=== PATIENT | female | born 1985 | race American Indian/Alaskan Native ===

== ENCOUNTER 2018-05-01 13:53 | Outpatient (CLI) | payer MEDICAID ==
[2018-05-01 14:54] LABS: Basophils # (Auto) 0.1 K/mm3 (0.0-0.1); Basophils % (Auto) 0.7 % (0.0-1.8); Eosinophils # (Auto) 0.1 K/mm3 (0.0-0.4); Eosinophils % (Auto) 0.6 % (0.0-4.3); Hematocrit 30.4 % (30.3-42.9); Hemoglobin 9.6 gm/dl (10.1-14.3); Lymphocytes # (Auto) 2.1 K/mm3 (1.2-5.4); Mean Corpuscular HGB Conc 32 % (30-34); Mean Corpuscular Hemoglobin 22 pg (28-32); Mean Corpuscular Volume 69 fl (79-97); Monocytes # (Auto) 0.8 K/mm3 (0.0-0.8); Monocytes % (Auto) 7.5 % (0.0-7.3); Platelet Count 168 K/mm3 (140-440); Red Cell Distribution Width 16.8 % (13.2-15.2)
[2018-05-01 15:24] LABS: Bacteria,Urine 1+ /HPF (Negative); Bilirubin,Urine NEG (Negative); Blood,Urine NEG (Negative); Color,Urine Yellow (Yellow); Mucus,Urine 1+ /HPF; RBC,Urine < 1.0 /HPF (0.0-6.0); Urobilinogen,Urine < 2.0 mg/dL (<2.0)
[2018-05-01 15:53] LABS: Alanine Aminotransferase 11 units/L (7-56); Uric Acid 3.8 mg/dL (3.5-7.6)
[2018-05-01 18:29] VITALS: BP 133/80
== END 2018-05-01 16:53 | disposition home or self-care (01) ==
LOC: TRG 13:53
PROVIDERS: ATTEND Obstetrics & Gynecology
DX: O47.1 False labor at or after 37 completed weeks of gestation (principal); Z3A.38 38 weeks gestation of pregnancy
CPT/HCPCS: 36415; 59025; 81001; 82565; 83615; 84450; 84460; 84550; 85025

== ENCOUNTER 2018-05-12 09:50 | Inpatient (IN) | payer MEDICAID ==
--- NOTE | 2018-05-08 13:33 | History and Physical Report ---
History of Present Illness Date of examination: 05/08/18 Date of admission: 05/12/18 planed date of admission Chief complaint: here for c/s and BTL History of present illness: Pt presents for repeat c/s x 1 with BTL. All risk/benefits/alternatives were d/ w pt and questions were addressed and answered. Consents signed and given pt pt to present on day of surgery. Current Allergies (reviewed today): No known allergies EDC Confirmation: 05/17/2018 Gestational Age: 18 5/7 weeks Past History : 3 Term Births: 3 Living Children: 3 Para: 2 Mult. Births: 0 Prev : 1 Aborta: 0 Elect. Ab: 0 Spont. 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 of genital herpes: no Partner hx. of genital herpes: no Rash, Viral, or Febrile illness since last LMP? no Varicella/Chicken Pox Status: Previous Disease Genetic History Congenital Heart Defect: Mom: no Dad: no Nelda Disease: Mom: no Dad: no Thalassemia Mom: no Dad: no Neural Tube Defect Mom: no Dad: no Down's Syndrome Mom: no Dad: no Sonny-Sachs Mom: no Dad: no Sickle Cell Disease/Trait Mom: no Dad: no Hemophilia Mom: no Dad: no Muscular Dystrophy Mom: no Dad: no Cystic Fibrosis Mom: no Dad: no [place] Chorea Mom: no Dad: no Mental Retardation Mom: no Dad: no Fragile X Mom: no Dad: no Other Genetic/Chromosomal Disorder Mom: no Dad: no Child w/other defect Mom: no Dad: no Enviromental Exposures Xray Exposure: no Medication, drug, or alcohol use since LMP: no Chemical/Other Exposure: no Exposure to Cat Liter: no Hx of Parvovirus (Fifth Disease): no Occupational Exposure to Children: none Active Medications (reviewed today): None Current Allergies (reviewed today): No known allergies Past History Past Medical History: no pertinent history 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: 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 PAP smear Social history: no significant social history, - Obstetrical History Expected Date of Delivery: 05/17/18 Actual Gestation: 38 Week(s) 5 Day(s) Medications and Allergies Allergies Allergy/AdvReac Type Severity Reaction Status Date / Time No Known Allergies Allergy Unverified 05/01/18 14:20 Home Medications Medication Instructions Recorded Confirmed Last Taken Type No Known Home Medications [No 05/01/18 05/01/18 Unknown History Reported Home Medications] Review of Systems All systems: negative - Physical Exam Cardiovascular: Normal S1, Normal S2 Lungs: Positive: Clear to auscultation, Normal air movement Abdomen: Positive: normal appearance, soft. Negative: distention, tenderness, guarding Genitourinary (Female): Positive: normal external genitalia, normal perenium Vagina: Positive: normal moisture Extremities: Positive: edema (2+ dependent b/l) - Obstetrical FHR: auscultation normal Results All other labs normal. Assessment and Plan - Patient Problems (1) 39 weeks gestation of Status: Acute (2) Previous section Status: Acute Plan to address problem: -admit for above procedure -consents signed and to be placed on the chart (3) Encounter for sterilization Status: Acute Plan to address problem: -consents singed -alternatives and risk discussed w/ pt and questions were addressed and answered.
[~2018-05-12 09:50] MED LIST: ANCEF/STERILE WATER 2 GM/20 ML 2 GM/20 ML SYRINGE IV NR; BICITRA PO NR; PEPCID IV NR; PITOCin/NS 20 UNIT/1000ML DRIP 20 UNITS/1,000 ML BAG IV SCH; REGLAN IV NR
[2018-05-12] MEDS ORDERED: LACTATED RINGERS 2,000 ML ONE (10:56)
[2018-05-12 11:09] LABS: Basophils % (Auto) 0.2 % (0.0-1.8); Eosinophils # (Auto) 0.1 K/mm3 (0.0-0.4); Eosinophils % (Auto) 1.1 % (0.0-4.3); Hematocrit 31.5 % (30.3-42.9); Hemoglobin 9.9 gm/dl (10.1-14.3); Lymphocytes # (Auto) 2.2 K/mm3 (1.2-5.4); Lymphocytes % (Auto) 25.6 % (13.4-35.0); Mean Corpuscular HGB Conc 31 % (30-34); Monocytes # (Auto) 0.6 K/mm3 (0.0-0.8); Platelet Count 195 K/mm3 (140-440); Red Blood Count 4.62 M/mm3 (3.65-5.03); Red Cell Distribution Width 17.7 % (13.2-15.2)
[2018-05-12 11:13] LABS: Mean Corpuscular Hemoglobin 21 pg (28-32); Mean Corpuscular Volume 68 fl (79-97)
[2018-05-12] MEDS: LACTATED RINGERS 1,000 ML IV SCH ×2 (11:45→12:14)
[2018-05-12] MEDS ORDERED: WATER FOR IRRIG STERILE IR ONE (12:55)
[2018-05-12] MEDS ORDERED: NACL 0.9% IR ONE (12:55)
[2018-05-12] MEDS ORDERED: NARCAN 0.4 MG/1 ML IV PRN ×2 (12:59→14:22)
[2018-05-12] MEDS ORDERED: PHENERGAN PO PRN (12:59)
[2018-05-12] MEDS ORDERED: BENADRYL IV PRN (12:59)
[2018-05-12] MEDS ORDERED: DILAUDID IV PRN (12:59)
[2018-05-12] MEDS ORDERED: PHENERGAN PR PRN (12:59)
[2018-05-12] MEDS ORDERED: ZOFRAN IV PRN (12:59)
--- NOTE | 2018-05-12 12:59 | Anesthesia Day of Surgery ---
Anesthesia Day of Surgery - Day of Surgery Patient Examined: Yes Patient H&P Reviewed: Yes Patient is NPO: Yes
--- NOTE | 2018-05-12 12:59 | Anesthesia Consultation ---
Anesthesia Consult and Med Hx Date of service: 05/12/18 - Airway Anesthetic Teeth Evaluation: Good ROM Head & Neck: Adequate Mental/Hyoid Distance: Adequate Mallampati Class: Class II Intubation Access Assessment: Probably Good - Pre-Operative Health Status ASA Pre-Surgery Classification: ASA3 Proposed Anesthetic Plan: Epidural, Spinal - Pulmonary Hx Asthma: No COPD: No Hx Pneumonia: No - Cardiovascular System Hx Hypertension: No - Central Nervous System Hx Seizures: No Hx Psychiatric Problems: No - Endocrine Hx Renal Disease: No Hx End Stage Renal Disease: No Hx Hypothyroidism: No Hx Hyperthyroidism: No - Hematic Hx Anemia: No Hx Sickle Cell Disease: No - Other Systems Hx Alcohol Use: No Hx Obesity: Yes (BMI 40.9)
[2018-05-12] MEDS ORDERED: SODIUM CHLORIDE FLUSH SYRINGE 10 ML IV NR (13:00)
[2018-05-12] MEDS ORDERED: TORADOL IV PRN (13:00)
[2018-05-12] MEDS ORDERED: NEO SYNEPHRINE/NS Syringe(OR USE) IV ONE (13:23)
[2018-05-12] MEDS ORDERED: NACL 0.9% 1000 ML 1,000 ML ONE (14:06)
[2018-05-12] MEDS ORDERED: MORPHINE ONE (14:08)
[2018-05-12] MEDS ORDERED: MOTRIN PO PRN (14:22)
[2018-05-12] MEDS ORDERED: TUCKS PAD TP PRN (14:22)
[2018-05-12] MEDS ORDERED: MYLICON PO PRN (14:22)
[2018-05-12] MEDS ORDERED: NORCO 5/325 PO PRN (14:22)
[2018-05-12] MEDS ORDERED: LANSINOH TP PRN (14:22)
--- NOTE | 2018-05-12 14:30 | Operative Report ---
Operative Report Operative Report: Date of procedure: 05/12/2018 Pre-operative diagnosis: 39 weeks gestation Previous section 1 Desires permanent sterilization Post-operative diagnosis: Same Procedure name(s): Repeat lower transverse section via Pfannenstiel skin incision Bilateral tubal ligation via modified Jonathan method Surgeon: Dr. Hurd Workers Compensation Adjuster: Ms. Reba Laughlin CST Anesthesia: Combined spinal epidural EBL: 600 mL Urine output: 50 mL of clear urine out at the end of the procedure Fluids: 1500 mL Findings: Liveborn female weight 7 lbs. 2 oz. Apgars of 8 and 9 at one and 5 minutes Nuchal cord 1 easily reduced Grossly normal fallopian tubes and ovaries bilaterally Indications: Mony presents for scheduled repeat section with bilateral tubal ligation. All risks benefits and alternatives were discussed with the patient. Patient was given ample time to ask questions all of which were addressed and answered. Consents were signed and placed on the chart. Procedure: Patient was taking to the operating room. Patient was then prepped and draped in sterile fashion after anesthesia was found to be adequate. A low transverse skin incision was made with the scalpel through previous incisional scar and carried down to the underlying layer of fascia with the Bovie. The fascia was then incised in the midline and this incision was extended bilaterally with the Bovie. The superior aspect of the fascia was grasped with Ying clamps tented upward and dissected off of the anterior rectus muscles with the scalpel. In similar fashion the inferior aspect of the fascia was grasped with Ying clamps tented upward and dissected off of the anterior rectus muscles. The rectus muscles were then bluntly divided in the midline. The peritoneum was identified and entered into sharply. The Zhen retractor was placed A lower transverse uterine incision was made with the scalpel and extended bilaterally with the bandage scissors. Artificial rupture of membranes was performed yielding clear amniotic fluid. The 's head was then delivered atraumatically. The anterior shoulder and rest of infant delivered without difficulty. The umbilical cord was clamped x2. The cord was cut. The infant was then placed in sterile bassinet. The cord blood was collected. The placenta was manually extracted in its entirety. The uterus was exteriorized and cleared of all clots and debris. The uterine incision was closed using 0 Vicryl in a running locking fashion. A second imbricating layer of the same suture was then created. Attention was then turned to the fallopian tubes. A knuckle of the tube was grasp with the [place] suture ligated and transected with a portion of the tube passed off to pathology. The tube was ligated 2 prior to transecting it. This was repeated bilaterally. Hemostasis was noted. The posterior cul-de-sac was copiously irrigated. The uterus was returned to the abdomen. The gutters were also irrigated. The anterior rectus muscles were reapproximated using 3-0 Vicryl. The anterior rectus fascia was reapproximated using 0 Vicryl in a running fashion. The subcuticular fat was reapproximated using 2-0 Vicryl in a running fashion. The skin was reapproximated with melvin. The patient tolerated the procedure well. Sponge lap and needle counts were all correct x3. Patient was taken to the recovery room awake and in stable condition.
[2018-05-12] MEDS ORDERED: D5LR 1,000 ML IV SCH (15:00)
[2018-05-12] MEDS ORDERED: ANCEF/NS 1 GM/50 ML 1 GM/50 ML BAG IV SCH (15:00)
[2018-05-12] MEDS: ceFAZolin 1 GM in NACL 0.9% 20 ML IV SCH (21:31)
[2018-05-13 00:46] LABS: Hematocrit 28.1 % (30.3-42.9); Hemoglobin 8.9 gm/dl (10.1-14.3)
[2018-05-13] MEDS: ceFAZolin 1 GM in NACL 0.9% 20 ML IV SCH (05:28)
--- NOTE | 2018-05-13 07:29 | Progress Note ---
Assessment and Plan Patient doing well w/o complaints. VSSAF, H&H 8.9/28.1 (pre-exiting anemia, slight drop after surgery, asymptomatic). encouraged ambulation and advance diet as tolerated. Encouraged use of abdominal binder while awake, reviewed wound care. Plan to continue postop pathway. - Patient Problems (1) delivery delivered Current Visit: Yes Status: Acute (2) Anemia associated with acute blood loss Current Visit: Yes Status: Acute Subjective - Subjective Date of service: 05/13/18 Principal diagnosis: postop day #1 s/p repeat c/s Patient reports: appetite normal, voiding normally, pain well controlled, ambulating normally, no dizzy ambulation, no flatus, no nauseated [employer]: doing well, bottle feeding (breast and bottle feeding) Objective - Vital Signs Latest vital signs: Vital Signs Temp Pulse Resp BP BP Pulse Ox 05/13/18 00:05 98.5 F 58 L 16 113/77 05/12/18 20:45 98.6 F 57 L 20 131/72 05/12/18 16:10 97.7 F 52 L 20 131/85 98 05/12/18 15:36 97.6 F 05/12/18 15:35 97.6 F 53 L 8 L 164/77 97 05/12/18 15:34 16 05/12/18 15:30 52 L 9 L 164/77 100 05/12/18 15:25 52 L 13 150/75 100 05/12/18 15:19 54 L 17 142/77 100 05/12/18 15:13 54 L 18 157/73 100 05/12/18 15:07 51 L 12 147/79 100 05/12/18 15:01 57 L 17 145/81 99 05/12/18 15:00 54 L 18 145/81 99 05/12/18 14:45 56 L 11 L 124/75 100 05/12/18 14:29 75 11 L 114/63 100 05/12/18 14:28 97.6 F 84 16 114/63 100 05/12/18 12:57 76 100 05/12/18 12:52 63 100 05/12/18 12:46 68 100 05/12/18 12:41 64 100 05/12/18 12:36 60 100 05/12/18 12:31 87 100 05/12/18 12:26 68 100 05/12/18 12:25 87 38 L 05/12/18 12:21 68 100 05/12/18 12:15 65 100 05/12/18 12:10 69 100 05/12/18 12:05 71 100 05/12/18 12:00 67 100 05/12/18 11:55 77 100 05/12/18 11:50 67 100 05/12/18 11:45 61 100 05/12/18 11:40 68 100 05/12/18 11:35 59 L 100 05/12/18 11:13 70 99 05/12/18 11:08 71 98 05/12/18 11:03 64 99 05/12/18 10:58 70 99 05/12/18 10:53 71 99 05/12/18 10:51 85 114/76 05/12/18 10:48 74 98 05/12/18 10:43 70 100 05/12/18 10:38 62 100 05/12/18 10:33 64 131/80 99 05/12/18 10:29 96.8 F L 68 20 131/80 99 Intake and Output 05/12/18 05/12/18 05/13/18 15:59 23:59 07:59 Intake Total 2900 90 240 Output Total 600 600 Balance 2300 -510 240 Intake: IV 2900 Lactated Ringers 1,000 ml 1000 @ 2250 mls/hr IV PREOP [facility] Rx#:[id number] Oral 90 Intake, Free Water 240 Output: Urine 600 600 Indwelling Catheter 600 Other: Total, Intake Amount 90 Total, Output Amount 600 Weight 122.016 kg Estimated Blood Loss 600 - Exam Breasts: Present: normal Cardiovascular: Present: Regular rate Lungs: Present: Clear to auscultation, Normal air movement Abdomen: Present: normal appearance, soft Vulva: both: normal Uterus: Present: normal, firm, fundal height at umbilicus Extremities: Present: normal Incision: Present: normal, dry, intact - Labs Labs: Abnormal lab results 05/12/18 05/13/18 Range/Units 10:20 00:35 Hgb 9.9 L 8.9 L (10.1-14.3) gm/dl Hct 28.1 L (30.3-42.9) % MCV 68 L (79-97) fl MCH 21 L (28-32) pg RDW 17.7 H (13.2-15.2) %
[2018-05-13] MEDS: FEOSOL PO SCH (08:47)
[2018-05-13] MEDS ORDERED: BOOSTRIX IM ONE (14:23)
--- NOTE | 2018-05-14 06:11 | Discharge Summary ---
Providers - Providers Date of Admission: 05/12/18 09:50 Date of discharge: 05/14/18 (pt desires d/c today) Attending physician: LUPE BLACKMON Primary care physician: LUPE BLACKMON Hospitalization Reason for admission: section Procedure: bilateral tubal ligation, repeat low transverse Episiotomy: none Laceration: none Incision: normal, dry, intact Other procedures: none complications: none Discharge diagnosis: IUP at term delivered baby: female Hospital course: uncomplicated repeat section with tubal ligation Pt resting voicing no complaints. VSS FF below umb Lochia scant Incision D&I Stable H&H Asymptomatic anemia Doing well s/p c/s. P: d/c today with instructions RTO 1 week postop care. RX provided @ d/c Condition at discharge: Good Disposition: DC-01 TO HOME OR SELFCARE - Discharge Diagnoses (1) delivery delivered Status: Acute Comment: RTO 1 week Postop care Plan - Discharge Medications Prescriptions: Docusate Sodium [Colace] 100 mg PO BID PRN #30 capsule PRN Reason: Constipation Ferrous Sulfate 325 mg PO BID #60 tablet.dr Ibuprofen 800 mg PO Q6HR #30 tablet Lidocain2.5%/Prilocai2.5% [Emla] 2 gm TP ONCE #1 tube oxyCODONE /ACETAMINOPHEN [Percocet 5/325] 1 tab PO Q4HR #30 tab - Provider Discharge Summary Activity: routine, no sex for 6 weeks, no heavy lifting 4 weeks, no strenuous exercise Diet: routine Instructions: routine Additional instructions: [] Smoking cessation referral if applicable(refer to patient education folder for contact #) [] Refer to [facility] Booklet Call your doctor immediately for: * Fever > 100.5 * Heavy vaginal bleeding ( >1 pad per hour) * Severe persistent headache * Shortness of breath * Reddened, hot, painful area to leg or breast * Drainage or odor from incision. * Keep incision clean and dry at all times and follow doctor's instructions regarding bathing/showering - Follow up plan Follow up: LUPE BLACKMON MD [Primary Care Provider] - 7 Days (Congratulations! Please keep scheduled postoperative appointment. Take medications as prescribed. Call [phone] with any concerns.)
[2018-05-14] MEDS: FEOSOL PO SCH (11:55)
[2018-05-14 15:39] VITALS: BP 132/80
== END 2018-05-14 16:15 | disposition home or self-care (01) | DRG 765 ==
LOC: APU 09:50 → LD 10:07 → OB 16:10
PROVIDERS: ADMIT Obstetrics & Gynecology; ATTEND Obstetrics & Gynecology
PROC: 10D00Z1 Extraction of Products of Conception, Low, Open Approach (ICD-10-PCS; principal; 2018-05-12)
PROC: 0UB70ZZ Excision of Bilateral Fallopian Tubes, Open Approach (ICD-10-PCS; 2018-05-12)
DX: O34.211 Maternal care for low transverse scar from previous cesarean delivery (principal); D62 Acute posthemorrhagic anemia; Z68.41 Body mass index [BMI] 40.0-44.9, adult; O99.214 Obesity complicating childbirth; E66.9 Obesity, unspecified; O99.03 Anemia complicating the puerperium; Z37.0 Single live birth; Z82.49 Family history of ischemic heart disease and other diseases of the circulatory system; Z3A.38 38 weeks gestation of pregnancy; Z30.2 Encounter for sterilization; O69.81X0 Labor and delivery complicated by cord around neck, without compression, not applicable or unspecified
CPT/HCPCS: 36415; 85014; 85018; 85025; 86850; 86900; 86901; 88302; 99211; A6250; G0463; J0690; J1170; J1885; J2270; J2370; J2405; J2590; J2765; J7030; J7120; J7121

== ENCOUNTER 2018-05-22 09:52 | Observation (INO) | payer MEDICAID ==
[2018-05-22] MEDS ORDERED: ZOFRAN IV PRN (10:17)
[2018-05-22] MEDS ORDERED: SODIUM CHLORIDE FLUSH SYRINGE 10 ML IV PRN (10:17)
[2018-05-22] MEDS ORDERED: TYLENOL PO PRN (10:17)
--- NOTE | 2018-05-22 10:21 | History and Physical Report ---
History of Present Illness Date of examination: 05/22/18 Date of admission: 05/22/18 Chief complaint: here for post op History of present illness: Pt presented to office for post op f/u after c/s. She had bps that were 180s/ 100s. Pt admitted for evaluation and treatment of her elevated blood pressures. No headaches and no blurry vision. Past History Past Medical History: no pertinent history Past Surgical History: section (x2) - Obstetrical History : 3 Para: 3 Number of Living Children: 4 Medications and Allergies Allergies Allergy/AdvReac Type Severity Reaction Status Date / Time No Known Allergies Allergy Unverified 05/01/18 14:20 Home Medications Medication Instructions Recorded Confirmed Last Taken Type Docusate Sodium [Colace] 100 mg PO BID PRN #30 capsule 05/12/18 Unknown Rx Ferrous Sulfate 325 mg PO BID #60 tablet.dr 05/12/18 Unknown Rx Ibuprofen 800 mg PO Q6HR #30 tablet 05/12/18 Unknown Rx Lidocain2.5%/Prilocai2.5% [Emla] 2 gm TP ONCE #1 tube 05/12/18 Unknown Rx oxyCODONE /ACETAMINOPHEN [Percocet 1 tab PO Q4HR #30 tab 05/12/18 Unknown Rx 5/325] Active Meds: Active Medications Acetaminophen (Tylenol) 650 mg PO Q4H PRN PRN Reason: Pain MILD(1-3)/Fever >100.5/PARNELL Magnesium Sulfate (Magnesium Sulfate 40gm/1000ml) 40 gm in 1,000 mls @ 50 mls/ hr IV DIRECT KIRTI Ibuprofen (Motrin) 600 mg PO Q6H PRN PRN Reason: Pain, Mild (1-3) Ondansetron HCl (Zofran) 4 mg IV Q8H PRN PRN Reason: Nausea And Vomiting Sodium Chloride (Sodium Chloride Flush Syringe 10 Ml) 10 ml IV BID KIRTI Sodium Chloride (Sodium Chloride Flush Syringe 10 Ml) 10 ml IV PRN PRN PRN Reason: LINE FLUSH Review of Systems All systems: negative - Physical Exam Breasts: Positive: deferred Cardiovascular: Normal S1, Normal S2 Lungs: Positive: Clear to auscultation, Normal air movement Abdomen: Positive: normal appearance, soft, other (incision well healed c/d/i). Negative: distention, tenderness, guarding Genitourinary (Female): Positive: other (deferred) Results Result Diagrams: 05/22/18 14:20 05/22/18 14:20 All other labs normal. Assessment and Plan - Patient Problems (1) Hypertension, condition or complication Current Visit: Yes Status: Acute Plan to address problem: -admti -magnesium sulfate drip for bp >160s/100s -bp meds if indicated -PIH labs
[2018-05-22] MEDS ORDERED: MOTRIN PO PRN (12:25)
[2018-05-22] MEDS ORDERED: MAGNESIUM SULFATE 40GM/1000ML 40 GM/1,000 ML BAG IV SCH (13:00)
[2018-05-22 14:31] LABS: Basophils # (Auto) 0.1 K/mm3 (0.0-0.1); Basophils % (Auto) 0.8 % (0.0-1.8); Eosinophils # (Auto) 0.1 K/mm3 (0.0-0.4); Eosinophils % (Auto) 1.3 % (0.0-4.3); Hematocrit 34.6 % (30.3-42.9); Hemoglobin 10.7 gm/dl (10.1-14.3); Lymphocytes # (Auto) 2.2 K/mm3 (1.2-5.4); Lymphocytes % (Auto) 28.7 % (13.4-35.0); Mean Corpuscular HGB Conc 31 % (30-34); Monocytes # (Auto) 0.6 K/mm3 (0.0-0.8); Monocytes % (Auto) 7.7 % (0.0-7.3); Platelet Count 254 K/mm3 (140-440); Red Blood Count 4.97 M/mm3 (3.65-5.03); Red Cell Distribution Width 18.8 % (13.2-15.2)
[2018-05-22 14:33] LABS: Mean Corpuscular Hemoglobin 22 pg (28-32); Mean Corpuscular Volume 70 fl (79-97)
[2018-05-22] MEDS: NORMODYNE PO SCH ×2 (14:34→21:59)
[2018-05-22] MEDS ORDERED: APRESOLINE IV ONE (14:40)
[2018-05-22 14:54] LABS: Albumin 3.6 g/dL (3.9-5); BUN/Creatinine Ratio 13; Blood Urea Nitrogen 10 mg/dL (7-17); Hemolysis Index 91
[2018-05-22] MEDS: D5LR 1,000 ML IV SCH (15:03)
[2018-05-22 15:34] LABS: Alanine Aminotransferase 20 units/L (7-56)
[2018-05-22 17:42] LABS: Bilirubin,Urine NEG (Negative); Blood,Urine MOD (Negative); Color,Urine Straw (Yellow); Protein,Urine <15 mg/dL mg/dL (Negative); Urobilinogen,Urine < 2.0 mg/dL (<2.0)
[2018-05-22] MEDS ORDERED: SODIUM CHLORIDE FLUSH SYRINGE 10 ML IV SCH (22:00)
[2018-05-23] MEDS: D5LR 1,000 ML IV SCH (02:14)
--- NOTE | 2018-05-23 08:08 | Progress Note ---
Assessment and Plan patient without complaints this morning, denies PARNELL, visual changes or epigastric pain. b/p's 120/140's/70-80's. output adequate. Plan to continue mag sulfate x 24h (d/c this afternoon around 1500) and labetalol 200mg PO BID. Plan for d/c tomorrow if b/p remains stable. - Patient Problems (1) Hypertension, condition or complication Current Visit: Yes Status: Acute Subjective - Subjective Date of service: 05/23/18 Principal diagnosis: readmit for pre-e; day 2 Patient reports: appetite normal, pain well controlled, no nauseated Objective - Vital Signs Latest vital signs: Vital Signs Temp Pulse Resp BP BP Pulse Ox 05/23/18 02:40 98.6 F 80 18 145/79 05/23/18 01:00 98.4 F 87 16 149/79 05/22/18 22:25 98.2 F 102 H 18 128/79 05/22/18 21:59 86 136/84 05/22/18 20:25 98.7 F 97 H 18 126/70 98 05/22/18 20:15 98.7 F 97 H 18 126/70 98 05/22/18 18:24 98.2 F 97 H 16 135/84 98 05/22/18 16:46 98.6 F 65 20 182/86 100 05/22/18 15:14 53 L 179/95 05/22/18 14:34 57 L 188/107 05/22/18 13:20 99.0 F 57 L 14 188/107 99 Intake and Output 05/22/18 05/23/18 05/23/18 23:59 07:59 15:59 Intake Total 240 1018.75 Output Total 1200 700 Balance -960 318.75 Intake: IV 838.75 D5lr 1,000 ml @ 125 mls/ 838.75 hr IV DIRECT KIRTI Rx#: [id number] Oral 240 Intake, Free Water 180 Output: Urine 1200 700 Indwelling Catheter 1200 700 Other: Total, Intake Amount 240 Total, Output Amount 300 700 - Exam Breasts: Present: normal Cardiovascular: Present: Regular rate Lungs: Present: Clear to auscultation, Normal air movement Abdomen: Present: normal appearance, soft Extremities: Present: normal Deep Tendon Reflex Grade: Normal +2 - Labs Labs: Abnormal lab results 05/22/18 05/22/18 05/22/18 Range/Units 14:20 14:20 20:47 MCV 70 L (79-97) fl MCH 22 L (28-32) pg RDW 18.8 H (13.2-15.2) % [place] % (Auto) 7.7 H (0.0-7.3) % Magnesium 3.20 H (1.7-2.3) mg/dL Albumin 3.6 L (3.9-5) g/dL 05/23/18 Range/Units 01:51 MCV (79-97) fl MCH (28-32) pg RDW (13.2-15.2) % [place] % (Auto) (0.0-7.3) % Magnesium 4.00 H (1.7-2.3) mg/dL Albumin (3.9-5) g/dL
[2018-05-23] MEDS: NORMODYNE PO SCH ×2 (10:00→21:42)
[2018-05-24] MEDS ORDERED: APRESOLINE IV ONE (08:38)
[2018-05-24] MEDS ORDERED: NORMODYNE ONE (08:39)
--- NOTE | 2018-05-24 08:44 | Progress Note ---
Assessment and Plan - Patient Problems (1) Hypertension, condition or complication Current Visit: Yes Status: Acute Plan to address problem: s/p MgSO4 fro 24hours Now BP's elevated (see RN note) Will increase Labetalol to 300mg BID to start now, Hydralazine 10mg IV now. (2) delivery delivered Current Visit: No Status: Acute Plan to address problem: POD#12 (3) Encounter for sterilization Current Visit: No Status: Acute Plan to address problem: POD#12 (4) Previous section Current Visit: No Status: Chronic Subjective - Subjective Date of service: 05/24/18 Principal diagnosis: HD#2 PP preEclampsia vs GHTN, POD# 12 RC/S Interval history: Patient w/o complaints. Denies visual changes, PARNELL, RUQ pain, no CP or SOB or any deficits Patient reports: appetite normal, voiding normally Objective - Vital Signs Latest vital signs: Vital Signs Temp Pulse Resp BP BP BP Pulse Ox 05/24/18 08:12 168/98 05/24/18 07:30 98.5 F 52 L 18 199/102 100 05/24/18 06:09 140/84 05/24/18 01:04 140/84 150/88 05/24/18 00:00 98.5 F 66 179/85 05/23/18 21:42 88 150/88 05/23/18 20:00 98.5 F 69 20 141/78 96 05/23/18 16:06 98.5 F 78 20 138/88 99 05/23/18 12:06 97.6 F 87 20 138/81 97 05/23/18 10:02 98.3 F 77 20 147/91 99 05/23/18 10:00 79 136/84 Intake and Output 05/23/18 05/24/18 05/24/18 22:59 06:59 14:59 Intake Total 120 Output Total 200 300 Balance -200 -180 Intake: Oral 120 Output: Urine 200 300 Void 200 300 Other: Total, Intake Amount 120 Total, Output Amount 200 300 - Exam Breasts: Present: deferred Cardiovascular: Present: Regular rate Abdomen: Present: normal appearance - Labs Labs: Abnormal lab results 05/23/18 05/23/18 Range/Units 10:48 14:04 Magnesium 6.00 H 6.10 H (1.7-2.3) mg/dL
[2018-05-24] MEDS: NORMODYNE PO SCH ×3 (08:52→21:45)
--- NOTE | 2018-05-24 09:47 | Event Note ---
Date: 05/24/18 patient still w/o complaints BP 150/90 15minutes after Hydralazine BP 140/80 at ~930 Will change labetalol to q8hrs and check bp's at q2hrs x4
--- NOTE | 2018-05-24 10:59 | Event Note ---
Date: 05/24/18 Late entry: Manual BP by me @0825 200/100 at 0825 today; then had 197/99 with the automated cuff at 0830 today. Also Labetalol changed to 300mg q8h.
[2018-05-25] MEDS: NORMODYNE PO SCH ×3 (05:21→22:20)
--- NOTE | 2018-05-25 09:52 | Progress Note ---
Assessment and Plan patient resting without complaints, denies PARNELL/visual changes/epigastric pain. b/ p's reviewed with Dr. Deleon. Order placed in chart by Dr. Deleon for hospitalist consult and the hospitalist has been notified. Patient aware that she needs to be evaluated by hospitalist and no plan for d/c prior to being evaluated. Patient attributes elevated b/p's documented by dinamap to "unbearable pain" and states it feels like her "arm is going to explode". Nurse instructed to only check b/p's with manual cuff. Continue current pathway, awaiting hospitalist recommendations. Tentative appointment scheduled with Dr. Deleon in [place] office Saturday @ 1030. - Patient Problems (1) Hypertension, condition or complication Current Visit: Yes Status: Acute Subjective - Subjective Date of service: 05/25/18 Principal diagnosis: HD#3 PP preEclampsia vs GHTN, POD# 13 RC/S Patient reports: appetite normal, voiding normally, pain well controlled, ambulating normally, no dizzy ambulation, no nauseated Objective - Vital Signs Latest vital signs: Vital Signs Temp Pulse Resp BP BP BP Pulse Ox 05/25/18 08:40 158/84 05/25/18 07:23 98.0 F 74 18 143/101 100 05/25/18 05:21 90 150/90 05/25/18 04:05 98.2 F 86 18 140/90 05/25/18 01:13 98.6 F 73 18 152/80 99 05/24/18 21:45 82 140/82 05/24/18 21:43 98.5 F 82 18 140/82 05/24/18 15:50 99.0 F 73 20 137/86 98 05/24/18 14:10 90 108/59 05/24/18 13:31 98.6 F 90 20 108/59 98 05/24/18 11:35 98.6 F 63 20 161/87 98 Intake and Output 05/24/18 05/25/18 05/25/18 23:59 07:59 15:59 Intake Total 240 Balance 240 Intake: Oral 240 Other: Total, Intake Amount 240 Voiding Method Toilet # Voids Indwelling Catheter 1 # Bowel Movements 0 - Exam Cardiovascular: Present: Regular rate Lungs: Present: Clear to auscultation, Normal air movement Abdomen: Present: normal appearance, soft Uterus: Present: normal, firm, fundal height below umbilicus Incision: Present: normal, dry, intact
--- NOTE | 2018-05-25 11:52 | Consultation ---
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 She noted to have BP of 180s/100s in the office. Pt was admitted for evaluation and treatment of her elevated blood pressures. She denies any headaches and blurry vision. She has been placed on labetalol 300mg q8h and also given MgSO4 drip. Medicine service requested for further evaluation and management. Past History Past Medical History: No medical history Past Surgical History: Social history: lives with family. denies: smoking Family history: hypertension Medications and Allergies Allergies Allergy/AdvReac Type Severity Reaction Status Date / Time No Known Allergies Allergy Unverified 05/01/18 14:20 Home Medications Medication Instructions Recorded Confirmed Last Taken Type Docusate Sodium [Colace] 100 mg PO BID PRN #30 capsule 05/12/18 05/23/18 Unknown Rx Ferrous Sulfate 325 mg PO BID #60 tablet. 05/12/18 05/23/18 Unknown Rx Ibuprofen 800 mg PO Q6HR #30 tablet 05/12/18 05/23/18 Unknown Rx Lidocain2.5%/Prilocai2.5% [Emla] 2 gm TP ONCE #1 tube 05/12/18 05/23/18 Unknown Rx oxyCODONE /ACETAMINOPHEN [Percocet 1 tab PO Q4HR #30 tab 05/12/18 05/23/18 Unknown Rx 5/325] Labetalol [Normodyne TAB] 200 mg PO BID #60 tablet 05/23/18 Unknown Rx Amlodipine Besylate [Norvasc] 10 mg PO Q24HR #90 tablet 05/26/18 Unknown Rx Labetalol [Normodyne TAB] 300 mg PO Q8H #90 tablet 05/26/18 Unknown Rx Active Meds: Active Medications Acetaminophen (Tylenol) 650 mg PO Q4H PRN PRN Reason: Pain MILD(1-3)/Fever >100.5/PARNELL Dextrose/Lactated Ringer's (D5lr) 1,000 mls @ 125 mls/hr IV DIRECT KIRTI Last Admin: 05/23/18 02:14 Dose: 75 mls/hr Ibuprofen (Motrin) 600 mg PO Q6H PRN PRN Reason: Pain, Mild (1-3) Labetalol HCl (Normodyne) 300 mg PO Q8HR [facility] Last Admin: 05/25/18 05:21 Dose: 300 mg Ondansetron HCl (Zofran) 4 mg IV Q8H PRN PRN Reason: Nausea And Vomiting Sodium Chloride (Sodium Chloride Flush Syringe 10 Ml) 10 ml IV BID [facility] Sodium Chloride (Sodium Chloride Flush Syringe 10 Ml) 10 ml IV PRN PRN PRN Reason: LINE FLUSH Review of Systems Constitutional: no weight loss, no anorexia Ears, nose, mouth and throat: no decreased hearing, no nasal congestion, no sinus pain, no bleeding gums, no headache, no vertigo Breasts: normal, no swelling Cardiovascular: no chest pain, no rapid/irregular heart beat, no edema, no lightheadedness, no shortness of breath Respiratory: no cough, no shortness of breath, no congestion, no wheezing Gastrointestinal: no abdominal pain, no vomiting Genitourinary Female: no pelvic pain, no dysuria Musculoskeletal: no neck stiffness Integumentary: no rash, no jaundice Neurological: no weakness, no parathesias, no numbness, no tingling Psychiatric: no anxiety, no disorientation Endocrine: no cold intolerance, no heat intolerance Hematologic/Lymphatic: no easy bruising, no easy bleeding Allergic/Immunologic: no urticaria Exam - Constitutional Vitals: Temp Pulse Resp BP Pulse Ox 98.0 F 74 18 158/84 100 05/25/18 07:23 05/25/18 07:23 05/25/18 07:23 05/25/18 08:40 05/25/18 07:23 General appearance: Present: no acute distress, obese - EENT Eyes: Present: PERRL ENT: hearing intact, clear oral mucosa - Neck Neck: Present: supple, normal ROM - Respiratory Respiratory effort: normal Respiratory: bilateral: CTA - Cardiovascular Heart Sounds: Present: S1 & S2. Absent: rub, click - Extremities Extremities: pulses symmetrical, No edema Peripheral Pulses: within normal limits - Abdominal General gastrointestinal: Present: soft, non-tender, non-distended, normal bowel sounds - Integumentary Integumentary: Present: clear, warm, dry - Musculoskeletal Musculoskeletal: gait normal, strength equal bilaterally - Psychiatric Psychiatric: appropriate mood/affect, intact judgment & insight - Neurologic Neurologic: CNII-XII intact, moves all extremities Results - Labs CBC & Chem 7: 05/22/18 14:20 05/22/18 14:20 Assessment and Plan Uncontrolled BP h/o recent delivery with C- section - cont labatelol - will add norvasc, obtain 2d echo - Post-op care by primary
[2018-05-25] MEDS: NORVASC PO SCH (16:07)
[2018-05-26] MEDS: NORMODYNE PO SCH ×2 (05:32→17:12)
--- NOTE | 2018-05-26 07:08 | Discharge Summary ---
Providers - Providers Date of Admission: 05/22/18 13:12 Date of discharge: 05/26/18 (pt desires d/c home today; pt has appt in office tomorrow for BP check) Attending physician: LUPE BLACKMON 05/25/18 09:13 Consult to Physician [CONS] Routine Comment: s/w Dr. Randolph who will call Consulting Provider: DOV VALENZUELA Physician Instructions: Reason For Exam: elevated BP's Primary care physician: LUPE BLACKMON Hospitalization Reason for admission: other (pt admitted for elevated blood pressures PP) Procedure: other (ECHO lamar for this AM) Other procedures: other (received MGSO4 X 24 hours) Hospital course: readmit for uncontrolled elevated blood pressure Hospitalists consulted for BP control Pt in good spirits No c/o PARNELL, blurred vision, CP. BP 130-150/80-90 Pt is receiving Labetalol 300 TID and Norvasc 10mg QD DTRs wnl Pt stabel s/p admit for BP control PP. P: d/c today after ECHO and release by hospitalist. Will consult with for d/c Pt does have an appt in our office tomorrow for BP check. Condition at discharge: Good Disposition: DC-01 TO HOME OR SELFCARE - Discharge Diagnoses (1) Hypertension, condition or complication Status: Acute Comment: appt for tomorrow Plan - Discharge Medications Prescriptions: Amlodipine Besylate [Norvasc] 10 mg PO Q24HR #90 tablet Labetalol [Normodyne TAB] 200 mg PO BID #60 tablet Labetalol [Normodyne TAB] 300 mg PO Q8H #90 tablet - Provider Discharge Summary Activity: routine, no sex for 6 weeks, no heavy lifting 4 weeks, no strenuous exercise Diet: other (no salt) Instructions: routine Additional instructions: [] Smoking cessation referral if applicable(refer to patient education folder for contact #) [] Refer to [facility] Booklet Call your doctor immediately for: * Fever > 100.5 * Heavy vaginal bleeding ( >1 pad per hour) * Severe persistent headache * Shortness of breath * Reddened, hot, painful area to leg or breast * Drainage or odor from incision. * Keep incision clean and dry at all times and follow doctor's instructions regarding bathing/showering - Follow up plan Follow up: LUPE BLACKMON MD [Primary Care Provider] - 05/27/18 10:30 am (Please call [phone] with any complaint of headache, blurred vision, chest pain. Take all medications as precribed. Call with any concerns.)
--- NOTE | 2018-05-26 09:25 | Progress Note ---
Assessment and Plan Uncontrolled BP h/o recent delivery with C- section - cont labatelol and norvasc, follow 2d echo - Post-op care by primary - BP much stable today. Can d/c home if 2d echo normal Subjective Date of service: 05/26/18 Principal diagnosis: HD#3 PP preEclampsia vs GHTN, POD# 13 RC/S Interval history: Pt seen and examined No headache, chest pain or dizziness Objective - Exam Narrative Exam: General appearance: Present: no acute distress, obese - EENT Eyes: Present: PERRL ENT: hearing intact, clear oral mucosa - Neck Neck: Present: supple, normal ROM - Respiratory Respiratory effort: normal Respiratory: bilateral: CTA - Cardiovascular Heart Sounds: Present: S1 & S2. Absent: rub, click - Extremities Extremities: pulses symmetrical, No edema Peripheral Pulses: within normal limits - Abdominal General gastrointestinal: Present: soft, non-tender, non-distended, normal bowel sounds - Integumentary Integumentary: Present: clear, warm, dry - Musculoskeletal Musculoskeletal: gait normal, strength equal bilaterally - Psychiatric Psychiatric: appropriate mood/affect, intact judgment & insight - Neurologic Neurologic: CNII-XII intact, moves all extremities - Constitutional Vitals: Vital Signs - 12hr 05/25/18 05/25/18 05/25/18 22:20 23:17 23:20 Temperature 98.1 F Pulse Rate 71 66 66 Respiratory 16 16 Rate Blood Pressure 156/95 151/91 141/77 Blood Pressure 151/91 [Left] Blood Pressure [Right] O2 Sat by Pulse 100 100 Oximetry 05/26/18 05/26/18 05/26/18 03:29 03:33 05:32 Temperature 98.7 F 98.7 F Pulse Rate 78 81 81 Respiratory 16 16 Rate Blood Pressure 163/89 139/83 139/83 Blood Pressure [Left] Blood Pressure [Right] O2 Sat by Pulse 98 98 Oximetry 05/26/18 06:00 Temperature 98.7 F Pulse Rate 81 Respiratory Rate Blood Pressure Blood Pressure [Left] Blood Pressure 139/83 [Right] O2 Sat by Pulse Oximetry - Labs CBC & Chem 7: 05/22/18 14:20 05/22/18 14:20
[2018-05-26] MEDS: NORVASC PO SCH (10:33)
[2018-05-26 17:10] VITALS: BP 130/97
== END 2018-05-26 18:35 | disposition home or self-care (01) ==
LOC: UNDOADMOB 09:52 → 3A 09:52 → OB 10:17 → UNDOADMOB 13:12 → OB 13:12 → OBSVTOIN 05-25 10:56 → INTOOBSV 05-25 10:56 → UNDOADMOB 05-25 10:56 → OB 05-25 10:56 → INTOOBSV 05-26 10:55 → OBSVTOIN 05-26 10:55 → UNDODISIN 05-26 18:35
PROVIDERS: ADMIT Obstetrics & Gynecology; ATTEND Obstetrics & Gynecology
DX: O16.5 Unspecified maternal hypertension, complicating the puerperium (principal); Z82.49 Family history of ischemic heart disease and other diseases of the circulatory system; Z79.899 Other long term (current) drug therapy
CPT/HCPCS: 36415; 80053; 81001; 83735; 85025; 93306; 96361; 96365; 96366; 96375; 96376; G0378; G0379; J0360; J3475; J7121